=== PATIENT | female | born 1960 | race Two or more races ===

== ENCOUNTER → 2024-10-17 | Outpatient (CLI) | payer MEDICAID, SELFPAY ==
--- NOTE | 2024-10-17 13:30 | XR_ITS ---
Examination: Breast ultrasound complete, bilateral Date and time of exam: October 17, 2024 1340 hours INDICATIONS: Bilateral breast sonography December 29, 2023 suspicious mass 12:00 position right breast Technique: Real-time grayscale ultrasonographic imaging bilateral breasts, including all 4 quadrants as well as nipple retroareolar and axillary regions. Findings: Sonographic images right breast Retroareolar oval mass partially circumscribed 7 x 4.5 x 9.5 cm Sonographic images left breast retroareolar cyst 4 x 3 x 4 mm no solid nodules IMPRESSION: BI-RADS Category 4: Suspicious for malignancy Suspicious mass 9:00 position right breast which has increased in size compared to December 29, 2023, recommend repeat ultrasound-guided breast biopsy to exclude carcinoma
== END | disposition home or self-care (01) ==
LOC: CDIM 12:54
PROVIDERS: PCP Registered Nurse Community Health; Referring Provider Registered Nurse Community Health; Visit Provider Registered Nurse Community Health
DX: N63.15 Unspecified lump in the right breast, overlapping quadrants (principal)
CPT/HCPCS: 76641

== ENCOUNTER 2024-12-17 11:30 | Day surgery (SDC) | payer MEDICAID, SELFPAY ==
--- NOTE | 2024-12-13 06:26 | EKG_ITS ---
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
[2024-12-13 10:02] VITALS: BMI 35.3
[2024-12-13 10:56] LABS: Basophils % (Auto) 1 % (0-2.5); Eosinophils # (Auto) 0.2 Thou/mm3 (0.0-0.5); Eosinophils % (Auto) 4 % (0-10); Hematocrit 34.5 % (36.0-46.0); Hemoglobin 11.5 g/dL (12.0-16.0); Immature Granulocytes % (Auto) 0 % (0-0); Immature Granulocytes Auto 0.01 Thou/mm3 (0.00-0.00); Lymphocytes # (Auto) 1.9 Thou/mm3 (1.0-4.8); Lymphocytes % (Auto) 30 % (10-50); Mean Corpuscular HGB Conc 33.3 g/dl (31.0-37.0); Mean Corpuscular Hemoglobin 28.9 pg (25.0-35.0); Mean Corpuscular Volume 87 fL (80-100); Monocytes # (Auto) 0.5 Thou/mm3 (0.0-0.8); Monocytes % (Auto) 8 % (0-12); Neutrophils # (Auto) 3.7 Thou/mm3 (1.8-7.7); Neutrophils % (Auto) 58 % (37-80); Nucleated Red Blood Cell % 0 /100 WBC (0); Platelet Count 161 Thou/mm3 (140-440); RDW Standard Deviation 46.2 fL (36.4-46.3); Red Blood Count 3.98 Miln/mm3 (4.00-5.20); White Blood Count 6.3 Thou/mm3 (3.6-11.0)
[2024-12-13 11:14] LABS: Alanine Aminotransferase 29 U/L (10-49); Albumin, Serum 4.8 gm/dL (3.4-4.8); Albumin/Globulin Ratio 1.8 (1.2-2.2); Alkaline Phosphatase 91 U/L (46-116); Anion Gap 9 (7-16); Aspartate Amino Transferase 23 U/L (0-34); BUN/Creatinine Ratio 24 Ratio (12-20); Bilirubin,Total 0.7 mg/dL (0.3-1.2); Blood Urea Nitrogen 24 mg/dL (9-23); Calcium 9.7 mg/dL (8.3-10.6); Calcium (Corrected) 9.7 mg/dL (8.5-10.1); Carbon Dioxide 30.4 mMol/L (20.0-31.0); Chloride 102 mMol/L (98-107); Estimated Creatinine Clearance 56.2 mL/min (>60); Globulin 2.7 gm/dL (2.3-3.5); Glucose 112 mg/dL (74-106); Osmolality,Calculated 286 (275-295); Potassium 3.9 mMol/L (3.4-5.1); Sodium 141 mMol/L (136-145); Total Protein 7.5 gm/dL (5.7-8.2); eGFR > 60 See Note
[2024-12-17 12:15] VITALS: BP 135/81; PULSE 76; RESP 17; TEMP 36.6; O2SAT 98; BMI 35.8
--- NOTE | 2024-12-17 14:09 | PD.SUROPNT ---
Date of Procedure 12/17/24 Pre Op Diagnosis Right upper arm soft tissue mass Post Op Diagnosis Right upper arm subfascial soft tissue mass Procedure Excision of subfascial soft tissue mass from right upper arm Findings Approximately 4 cm lipomatous subfascial soft tissue mass of right upper arm Procedure Description Patient brought into the operating room in supine position. After administration of monitored anesthesia care, patient's right upper extremity prepped and draped in standard surgical manner. The mass was palpated noted to be on the lateral and upper aspect of right upper arm. After administration of local anesthesia an approximately 4 cm elliptical incision was made and dissection was deepened into soft tissue. Subcutaneous soft tissue was inspected, the mass appeared to be subfascial. The fascia was divided. The mass was identified and circumferentially dissected out surrounding tissue and underlying muscle. The mass was lipomatous in nature, 4 cm in diameter. The mass was removed. The area was washed and irrigated. Hemostasis achieved using electrocautery. Fascia reapproximated with interrupted sutures using 2-0 Vicryl. Subcutaneous tissue closed with interrupted sutures using 2-0 Vicryl and the incision was closed with 4-0 Monocryl in subcuticular fashion. Dermabond and sterile dressings applied. Patient tolerated procedure well. She was breathing spontaneously and without difficulty and was transferred to postanesthesia care in stable condition. Instruments, needles and sponge counts were reported to be correct x 2. Anesthesia MAC and local Pathology / specimen Other (Right upper arm subfascial soft tissue mass) Estimated Blood Loss 2 Condition Stable Disposition PACU Surgeon Letitia Muñoz MD Surgical Staff Operation Date: 12/17/24 14:30 Case Staff DISTRICT WILDLIFE MANAGER: Nitin Villarreal
[2024-12-17 14:16] VITALS: BP 97/64; PULSE 64; RESP 12; TEMP 37; O2SAT 100
--- NOTE | 2024-12-17 14:16 | SUR.PHASEII ---
1416: Pt. AAOx4, vitals stable, breathing unlabored, no complaint of pain or nausea, dressing to right shoulder CDI, no active bleed noted, pt. able to wiggle bilateral hands, report received from Jose ZIMMER and Nitin TENORIO.
[2024-12-17 14:21] VITALS: BP 118/70; PULSE 81; RESP 13; TEMP 36.8; O2SAT 99
[2024-12-17 14:26] VITALS: BP 118/71; PULSE 83; RESP 17; TEMP 36.7; O2SAT 98
[2024-12-17 14:31] VITALS: BP 128/78; PULSE 73; RESP 14; TEMP 36.7; O2SAT 97
[2024-12-17 14:46] VITALS: BP 120/64; PULSE 73; RESP 14; TEMP 36.7; O2SAT 99
--- NOTE | 2024-12-17 14:50 | SUR.PHASEII ---
1450: Pt. AAOx4, vitals stable, breathing unlabored, dressing to right shoulder CDI, no active bleed noted, pt. tolerated sips of water well, pt. ambulated to wheelchair with steady gait and no assist, no complications. Gave discharge instructions to the pt. and her ride using geriatric nurse assistant, both verbalized understanding and had no further questions. Pt. left with all personal belongings.
== END 2024-12-17 14:50 | disposition home or self-care (01) ==
PROVIDERS: Anesthesiology; PCP Registered Nurse Community Health; Referring Provider Surgery; Visit Provider Surgery
PROC: (CPT 24076; principal; 2024-12-17 14:15)
DX: D17.21 Benign lipomatous neoplasm of skin and subcutaneous tissue of right arm (principal); Z01.810 Encounter for preprocedural cardiovascular examination
CPT/HCPCS: 24076; 36415; 80053; 85025; 93005; A4217; A4649; J0131; J0690; J2250; J2704; J3010; J3490

== ENCOUNTER → 2025-01-14 | Outpatient (CLI) | payer MEDICAID, SELFPAY ==
[2025-01-14 08:35] LABS: Basophils % (Auto) 1 % (0-2.5); Eosinophils # (Auto) 0.4 Thou/mm3 (0.0-0.5); Eosinophils % (Auto) 6 % (0-10); Hematocrit 35.2 % (36.0-46.0); Hemoglobin 11.6 g/dL (12.0-16.0); Immature Granulocytes % (Auto) 0 % (0-0); Immature Granulocytes Auto 0.02 Thou/mm3 (0.00-0.00); Lymphocytes # (Auto) 2.2 Thou/mm3 (1.0-4.8); Lymphocytes % (Auto) 32 % (10-50); Mean Corpuscular Hemoglobin 28.9 pg (25.0-35.0); Mean Corpuscular Volume 88 fL (80-100); Monocytes # (Auto) 0.6 Thou/mm3 (0.0-0.8); Monocytes % (Auto) 8 % (0-12); Neutrophils # (Auto) 3.6 Thou/mm3 (1.8-7.7); Neutrophils % (Auto) 53 % (37-80); Nucleated Red Blood Cell % 0 /100 WBC (0); Platelet Count 181 Thou/mm3 (140-440); RDW Standard Deviation 44.1 fL (36.4-46.3); Red Blood Count 4.01 Miln/mm3 (4.00-5.20); White Blood Count 6.8 Thou/mm3 (3.6-11.0)
[2025-01-14 08:56] LABS: INR 0.9 (0.9-1.3); Partial Thromboplastin Time 27.8 Seconds (22.0-36.0); Prothrombin Time 9.9 Seconds (9.0-12.2)
--- NOTE | 2025-01-14 10:30 | XR_ITS ---
Examinations: Ultrasound-guided percutaneous breast biopsy, right breast 9:00 nodule Right breast sonography limited. Exam date and time: January 14, 2025 0922 hours. INDICATIONS: Enlarging BI-RADS 4 suspicious mass 12:00 position right breast on sonogram October 17, 2024 Informed consent provided. Technique: A timeout was completed verifying correct patient, procedure, site, positioning, and special equipment if applicable Informed consent provided. The patient was placed in a supine position for the breast biopsy. Sonographic images of the breast were performed for localization of the suspicious nodule The patient's breast was prepped and draped in sterile fashion. Maximum sterile barrier technique, hand hygiene, ultrasound sterile technique 1% lidocaine was used to anesthetize the skin and breast adjacent to the suspicious nodule. Utilizing ultrasonographic guidance, 8 core biopsies were obtained of the suspicious nodule utilizing an 18-gauge BioPince needle. The specimens appears satisfactory. Estimated blood loss 3 cc. The patient tolerated the procedure well and there were no complications. Impression: Successful ultrasound-guided percutaneous breast biopsy, right breast 9:00 nodule.
== END | disposition home or self-care (01) ==
PROVIDERS: Radiology Diagnostic Radiology; PCP Registered Nurse Community Health; Referring Provider Registered Nurse Community Health; Visit Provider Registered Nurse Community Health
DX: D24.1 Benign neoplasm of right breast (principal)
CPT/HCPCS: 19083; 36415; 85025; 85610; 85730

== ENCOUNTER 2025-03-04 06:10 | Day surgery (SDC) | payer MEDICAID, SELFPAY ==
[2025-02-28 06:50] VITALS: BMI 36.6
[2025-02-28 08:48] LABS: Basophils % (Auto) 1 % (0-2.5); Eosinophils # (Auto) 0.4 Thou/mm3 (0.0-0.5); Eosinophils % (Auto) 6 % (0-10); Hematocrit 35.4 % (36.0-46.0); Hemoglobin 11.7 g/dL (12.0-16.0); Immature Granulocytes % (Auto) 0 % (0-0); Immature Granulocytes Auto 0.02 Thou/mm3 (0.00-0.00); Lymphocytes % (Auto) 33 % (10-50); Mean Corpuscular HGB Conc 33.1 g/dl (31.0-37.0); Mean Corpuscular Hemoglobin 29.3 pg (25.0-35.0); Mean Corpuscular Volume 89 fL (80-100); Monocytes # (Auto) 0.5 Thou/mm3 (0.0-0.8); Monocytes % (Auto) 8 % (0-12); Neutrophils # (Auto) 3.3 Thou/mm3 (1.8-7.7); Neutrophils % (Auto) 53 % (37-80); Nucleated Red Blood Cell % 0 /100 WBC (0); Platelet Count 164 Thou/mm3 (140-440); RDW Standard Deviation 44.7 fL (36.4-46.3); Red Blood Count 3.99 Miln/mm3 (4.00-5.20); White Blood Count 6.2 Thou/mm3 (3.6-11.0)
[2025-02-28 09:02] LABS: Alanine Aminotransferase 16 U/L (10-49); Albumin, Serum 4.2 gm/dL (3.4-4.8); Albumin/Globulin Ratio 1.6 (1.2-2.2); Alkaline Phosphatase 86 U/L (46-116); Anion Gap 7 (7-16); Aspartate Amino Transferase 17 U/L (0-34); BUN/Creatinine Ratio 23 Ratio (12-20); Bilirubin,Total 0.5 mg/dL (0.3-1.2); Blood Urea Nitrogen 23 mg/dL (9-23); Calcium 9.8 mg/dL (8.3-10.6); Calcium (Corrected) 9.8 mg/dL (8.5-10.1); Carbon Dioxide 30.2 mMol/L (20.0-31.0); Chloride 108 mMol/L (98-107); Estimated Creatinine Clearance 57.3 mL/min (>60); Globulin 2.7 gm/dL (2.3-3.5); Glucose 106 mg/dL (74-106); Osmolality,Calculated 292 (275-295); Sodium 145 mMol/L (136-145); Total Protein 6.9 gm/dL (5.7-8.2); eGFR > 60 See Note
[2025-03-04] VITALS (8 sets, daily range): BP systolic 128–145; BP diastolic 75–88; PULSE 73–77; RESP 12–16; TEMP 36.2–36.4; O2SAT 95–100; BMI 36.4
[2025-03-04] MEDS: RINGERS LACTATED 1000 ML 1,000 ML 20 ML IV (07:04)
--- NOTE | 2025-03-04 07:20 | CHAP ---
Spoke with patient giving encouragement and prayer.
--- NOTE | 2025-03-04 09:20 | SUR.PHASEI ---
pt arrived to PACU via gurney drowsy but arouses to voice, breathing unlabored, dressing to right breast clean, dry, and intact with breast binder in place, report from Alcira ZIMMER, Elissa ZIMMER, and Dr Finch.
[2025-03-04] MEDS: fentaNYL CIT INJ 50 mCg/ML AMP 2ML IV (09:28)
--- NOTE | 2025-03-04 09:29 | PD.SUROPNT ---
Date of Procedure 03/04/25 Pre Op Diagnosis Right breast mass Post Op Diagnosis Large right subareolar breast mass Procedure Right breast lumpectomy Findings An approximately 12 cm diameter hard subareolar mass of right breast Procedure Description Patient brought into the operating room and spine position. After administration of general endotracheal anesthesia, patient's right breast prepped and draped in standard surgical manner. After administration of local anesthesia an approximately 8 cm semicircular incision was made above the areolar complex and dissection was deepened into soft tissue. Circumferential breast flaps were raised. Underlying mass was circumferentially dissected off surrounding breast tissue and excised. The mass was large, approximately 12 cm in diameter and hard. The wound was washed and irrigated and hemostasis achieved using electrocautery. Deep breast tissue reapproximated with interrupted sutures using 2-0 Vicryl. Subcutaneous tissue closed with interrupted sutures using 3-0 Vicryl and incision was closed with 4-0 Monocryl in subcuticular fashion. Dermabond applied. Sterile pressure dressings and breast binder applied. Patient tolerated procedure well. She was extubated, breathing spontaneously and without difficulty and was transferred to postanesthesia care in stable condition. Instruments, needles and sponge counts were reported to be correct x 2. Anesthesia GETA and local Pathology / specimen Other (Right breast mass) Estimated Blood Loss 10 Condition Stable Disposition PACU Surgeon Letitia Muñoz MD Surgical Staff Operation Date: 03/04/25 08:30 Case Staff Anesthesiologist: Aram Finch RNsoftware quality automation engineer: Rin Duncan
--- NOTE | 2025-03-04 10:28 | SUR.PHASEII ---
pt awake, alert, able to follow commands, breathing unalbored, dressing to right breast clean, dry, and intact with breast binder in place, VS stable, discharge isntructions given with daughter present using telephone casting assistant Daniella ID#[id number] and daughter verbalize understanding and all questions answered, pt discharged via wheelchair with all belongings and copies of discharge paperwork.
== END 2025-03-04 10:28 | disposition home or self-care (01) ==
PROVIDERS: Anesthesiology; PCP Registered Nurse Community Health; Referring Provider Surgery; Visit Provider Surgery
PROC: (CPT 19301; principal; 2025-03-04 08:30)
DX: D24.1 Benign neoplasm of right breast (principal)
CPT/HCPCS: 19301; 36415; 80053; 85025; A4217; A4649; J0690; J1100; J2371; J2704; J2765; J3010; J3490; J7120; Q9968

== ENCOUNTER → 2025-05-20 | Outpatient (CLI) | payer MEDICAID, SELFPAY ==
--- NOTE | 2025-05-20 15:15 | XR_ITS ---
Examination: Screening digital mammography, bilateral Computer aided detection 3-D breast Tomosynthesis, bilateral Date and time of exam: May 20, 2025 1519 hours Compared to mammograms dating to January 26, 2016 Indication: Screening Technique: Nonmagnified MLO, CC views of the breasts to been obtained, reconstructed from 3-D Tomosynthesis images. R2 computer aided detection program utilized for evaluation of suspicious masses and/or abnormal calcifications. 3-D Tomosynthesis images obtained. Findings: The breasts are heterogeneously dense, which may obscure small masses Benign calcifications. No current suspicious masses Impression: BI-RADS Category 0: Incomplete: Need additional imaging evaluation Given the right breast sonogram report October 17, 2024 indicating breast nodule and biopsy January 14, 2025, recommend bilateral breast sonography follow-up mammogram.
== END | disposition home or self-care (01) ==
PROVIDERS: Referring Provider Registered Nurse Community Health; Visit Provider Registered Nurse Community Health
DX: Z12.31 Encounter for screening mammogram for malignant neoplasm of breast (principal); R92.333 Mammographic heterogeneous density, bilateral breasts; R92.1 Mammographic calcification found on diagnostic imaging of breast
CPT/HCPCS: 77063; 77067

== ENCOUNTER → 2025-08-11 | Outpatient (CLI) | payer MEDICAID, SELFPAY ==
--- NOTE | 2025-08-11 10:19 | XR_ITS ---
Examination: Breast ultrasound complete, bilateral Date and time of exam: August 11, 2025 1020 hours INDICATIONS: BI-RADS 4 suspicious nodule retroareolar region right breast, 9.5 cm on breast sonogram October 17, 2024, right breast lumpectomy February 2025, mammogram May 20, 2025 no suspicious mass Technique: Real-time grayscale ultrasonographic imaging bilateral breasts, including all 4 quadrants as well as nipple retroareolar and axillary regions. Findings: Sonographic images right breast No cystic or solid mass Sonographic images left breast 1:00 cyst 5 x 4 mm 10:00 cyst 10 x 5 mm Retroareolar cyst 5 x 5 mm No solid nodules IMPRESSION: BI-RADS Category 2: Benign findings
== END | disposition home or self-care (01) ==
PROVIDERS: PCP Registered Nurse Community Health; Referring Provider Registered Nurse Community Health; Visit Provider Registered Nurse Community Health
DX: N63.0 Unspecified lump in unspecified breast (principal)
CPT/HCPCS: 76641

== ENCOUNTER → 2025-11-13 | Outpatient (CLI) | payer MEDICARE, MEDICAID, SELFPAY ==
--- NOTE | 2025-11-13 09:14 | XR_ITS ---
EXAMINATION: PA lateral chest 2 views TECHNIQUE: Upright PA lateral chest 2 views Date and time: November 13, 2025, 0944 hours, comparison December 17, 2015 INDICATIONS: Shortness of breath beginning 2 weeks ago. FINDINGS: Normal heart size Lungs are clear. Moderate hyperexpansion. Mild kyphosis dorsal spine IMPRESSION: Moderate hyperexpansion
== END | disposition home or self-care (01) ==
DX: R91.8 Other nonspecific abnormal finding of lung field (principal)
CPT/HCPCS: 71046